=== PATIENT | female | born 1980 | race African-American/Black ===

== ENCOUNTER 2016-10-19 23:10 | Emergency (ER) | payer MEDICAID ==
[~2016-10-19] VITALS: Ht 160 cm; Wt 68.0 kg
[~2016-10-19 23:10] MED LIST: MECL25CH PO
[2016-10-19 23:12] VITALS: BP 122/71; PULSE 87; RESP 16; TEMP 98; O2SAT 97
[2016-10-19 23:16] VITALS: BP 132/86; PULSE 71; TEMP 98.2; O2SAT 98
--- NOTE | 2016-10-19 23:40 | PD ---
HPI Chief Complaint: Pain: Acute or Chronic Time Seen by Provider: 23:37 Travel History International Travel<30 days: No Contact w/Intl Traveler<30days: No Traveled to known affect area: No History of Present Illness HPI 36 year-old female presents to the emergency department for evaluation which she believes may be an insect bite on the right posterior distal lower extremity. Patient states she was getting out of the car when she noticed the area was itching. She states she has been bitten 2 other times this week and she is uncertain by what they are. She does have a dog and a cat and thinks this maybe fleas. Reports no fever or chills. No chest tightness. No difficulty breathing. Patient has no other symptoms to report. PFSH Past Medical History Bipolar Disorder: Yes Anxiety: Yes Depression: Yes Diminished Hearing: No Musculoskeletal: Yes (R shoulder strain) Immunizations Current: No ?: Not LMP: 10/12/16 Social History Alcohol Use: Yes (occasional) Tobacco Use: No Substance Use: No Allergies-Medications (Allergen,Severity, Reaction): Coded Allergies: No Known Allergies (Unverified , 10/19/16) Reported Meds & Prescriptions Reported Meds & Active Scripts Active No Active Prescriptions or Reported Medications Review of Systems Except as stated in HPI: all other systems reviewed are Neg Physical Exam Narrative GENERAL: Well-nourished, well-developed email patient in no acute distress SKIN: Warm and dry. 1 cm in diameter slightly erythematous but blanchable macule on the posterior lateral right distal lower extremity HEAD: Normocephalic. EYES: No scleral icterus. No injection or drainage. NECK: Supple, trachea midline. No JVD or lymphadenopathy. CARDIOVASCULAR: Regular rate and rhythm without murmurs, gallops, or rubs. RESPIRATORY: Breath sounds equal bilaterally. No accessory muscle use. GASTROINTESTINAL: Abdomen soft, non-tender, nondistended. MUSCULOSKELETAL: No cyanosis, or edema. No induration. No fluctuation. Patient has full flexion and extension of all joints of the affected extremity. BACK: Nontender without obvious deformity. No CVA tenderness. Data Data Last Documented VS Vital Signs Date Time Temp Pulse Resp B/P Pulse Ox O2 Delivery O2 Flow Rate FiO2 10/19/16 23:16 98.2 71 132/86 98 Room Air 10/19/16 23:12 16 Orders Diphenhydramine (Benadryl) (10/19/16 23:45) [facility] Medical Decision Making Medical Screen Exam Complete: Yes Emergency Medical Condition: Yes Medical Record Reviewed: Yes Differential Diagnosis Insect bite versus sting versus folliculitis versus urticaria Narrative Course 36 year-old female presents to emergency department for evaluation of what she believes may be an insect bite on her right distal lower extremity. The patient does have a small area consistent with an insect bite. She is otherwise well. I've encouraged [id number] Benadryl if it continues to itch as directed on package. She agrees to return immediately with any acute worsening of symptoms. Diagnosis Primary Impression: Local reaction to insect sting Qualified Code: T63.484A - Local reaction to insect sting, undetermined intent , initial encounter Additional Impression: Right leg pain Referrals: Primary Care Physician Patient Instructions: General Instructions, Insect Bite or Sting (ED) Additional Instructions: Do not scratch the area Elevate to reduce pain and swelling Continue Benadryl as directed on the package as needed for itching Follow-up with the primary care provider Return immediately to the emergency department with any acute worsening of symptoms Med/Other Pt SpecificInfo: No Change to Meds Scripts No Active Prescriptions or Reported Meds Disposition: 01 DISCHARGE HOME Condition: Stable Michell Allison Oct 19, 2016 23:40
[2016-10-19] MEDS ORDERED: diphenhydrAMINE HCL 25 MG CAP PO ONE (23:45)
== END 2016-10-19 23:52 | disposition home or self-care (01) ==
LOC: NEPB 23:10
DX: S80.861A Insect bite (nonvenomous), right lower leg, initial encounter (principal); W57.XXXA Bitten or stung by nonvenomous insect and other nonvenomous arthropods, initial encounter; M79.604 Pain in right leg
CPT/HCPCS: 99283